=== PATIENT | female | born 2000 | race Native Hawaiian/Other Pacific Islander ===

== ENCOUNTER 2019-08-26 09:45 | Outpatient (CLI) | payer BC | END 2019-08-26 22:16 | disposition home or self-care (01) | LOC: US 09:45 | DX: R10.9 Unspecified abdominal pain (principal); R53.83 Other fatigue ==

== ENCOUNTER 2020-05-09 08:33 | Outpatient (CLI) | payer BC, OTHER | END 2020-05-09 19:01 | disposition home or self-care (01) | LOC: LAB 08:33 | DX: Z20.828 Contact with and (suspected) exposure to other viral communicable diseases (principal) | CPT/HCPCS: 87635; G2023; U00003 ==